=== PATIENT | female | born 1995 | race Caucasian/White ===

== ENCOUNTER 2024-06-25 17:04 | Emergency (ER) | payer MEDICAID, SELFPAY ==
[2024-06-25 17:05] VITALS: BP 128/76; PULSE 100; RESP 18; TEMP 36.4; O2SAT 88; BMI 18.7
--- NOTE | 2024-06-25 17:24 | EX.ED.UPPERE ---
HPI History of Present Illness Chief Complaint: Upper Extremity Injury Informant: patient Narrative Narrative: 28-year-old healthy female [id number] has been dealing with painful tendinitis in her left thumb, she states she was previously diagnosed with de Quervain's tenosynovitis and given a splint but recently she has had occasional locking of her left thumb into extension which is very painful and tough to get out. She states she has been wearing the splint for about a month. 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 She states today she reached back to scratch her back and it occurred and she was miserable all day throughout work which is why she presents for evaluation. PFSH PFSH no medical history Allergy/AdvReac Type Severity Reaction Status Date / Time No Known Allergies Allergy Verified 06/25/24 17:05 ROS ROS ED Constitutional Constitutional ED: Denies chills or fever(s) Musculoskeletal Musculoskeletal: Reports extremity pain; Denies neck pain Integumentary Denies Abrasions, rash or wounds Neurologic Neurologic: Denies paresthesias or weakness EXAM Physical Exam Const Vital Signs: 06/25/24 17:05 Temperature 97.6 F L Temperature Source Oral Pulse Rate 100 Respiratory Rate 18 Blood Pressure 128/76 H Blood Pressure Mean 93 Pulse Ox 88 Oxygen Delivery Method Room Air Positive well nourished and well developed General Appearance ED: well developed and NAD Neck full ROM and supple Back/Spine normal ROM and normal to inspection Extremity Extremity Narrative: Patient does have full range of motion of the thumb joint without any difficulty at this time, there is no redness, swelling, tenderness over the joints of the thumb, but she does have some mild tenderness over the extensor tendon compartment over the left dorsomedial distal radius. There is a small swelling here associated with one of the tendons. It does move minimally with passive flexion/extension at the IPJ. Neuro oriented x3, no focal motor deficits and no sensory deficits noted Sensorium / Orientation: alert Psych mental status grossly normal and thought process normal Skin no wounds Rashes: no rashes MDM MDM MDM Narrative Medical decision making narrative: I believe this patient has probably developed a tendon nodule over one of her thumb extensors as a result of de Quervain's tenosynovitis. The splint that she has does not have any metal in it and I am not able to form at, and prevent full extension. For this reason she needs a different splint which we provided, it has metal in it which we formed to keep her from being able to extend fully. I am referring her to Dr. Izquierdo, who states that he can inject these and take care of this as an outpatient. Management Discussion w/another healthcare provider: [employer] (Dr. Izquierdo, plastics) Discharge Plan Triage Chief Complaint: Upper Extremity Injury ED Provider: Oliverio Loza Dx/Rx/DC Orders Clinical Impression: De Quervain's tenosynovitis, left, Nodule of extensor tendon sheath Instructions: Treating Trigger Finger Referrals: José Luis Izquierdo MD [Med Staff - Active Staff] - As soon as possible Print Language: [place] Disposition Disposition: Home, Self Care
[2024-06-25 17:35] VITALS: BP 122/74; PULSE 88; RESP 16; TEMP 36.4; O2SAT 98
== END 2024-06-25 17:54 | disposition home or self-care (01) ==
LOC: ED 17:51
PROVIDERS: Emergency Provider Emergency Medicine; Visit Provider Emergency Medicine
DX: M65.4 Radial styloid tenosynovitis [de Quervain] (principal)
CPT/HCPCS: 99283